=== PATIENT | female | born 1960 | race Caucasian/White ===

== ENCOUNTER 2021-10-12 08:17 | Inpatient (IN) ==
[2021-10-12] MEDS ORDERED: Furosemide 40 MG/4 ML VIAL IVP ONE (08:51)
[2021-10-12 09:25] LABS: Basophils # 0.1 K/mcL (0.0-0.2); Basophils % 1.2 %; Eosinophils # 0.5 K/mcL (0.0-0.6); Eosinophils % 5.2 %; Hematocrit 37.7 % (35.3-44.9); Immature Granulocytes % 4.5 % (0-4); Lymphocytes # 0.8 K/mcL (0.6-4.6); Lymphocytes % 8.9 %; Mean Corpuscular HGB Conc 31.8 g/dL (31.6-35.5); Mean Corpuscular Hemoglobin 29.3 pg (28.0-33.3); Mean Platelet Volume 9.9 fL (9.4-12.4); Monocytes # 0.8 K/mcL (0.0-1.3); Monocytes % 9.2 %; Neutrophils # 6.5 K/mcL (1.6-8.9); Platelet Count 217 K/mcL (140-400); Red Cell Distribution Width 14.3 % (11.5-14.5); White Blood Count 9.1 K/mcL (4.3-11.1)
[2021-10-12 09:28] LABS: VBG HCO3 28 mEq/L (21-27); VBG PCO2 46 mmHg (41-51); VBG PH 7.39 pH Units (7.32-7.42); VBG PO2 97 mmHg (25-50)
[2021-10-12] MEDS ORDERED: Isovue-370 500 ML BOTTLE IVP ONE (09:44)
[2021-10-12 09:47] LABS: Alanine Aminotransferase 87 Units/L (7-52); Albumin 3.3 g/dL (3.5-5.7); Albumin/Globulin Ratio 1.2 (1.1-2.2); Alkaline Phosphatase 181 Units/L (34-104); Aspartate Amino Transferase 52 Units/L (13-39); BUN/Creatinine Ratio 19 (6-26); Bilirubin,Total 0.6 mg/dL (0.3-1.0); Blood Urea Nitrogen 9 mg/dL (6-20); Calcium 8.2 mg/dL (8.6-10.3); Carbon Dioxide 26 mEq/L (23-29); Chloride 101 mEq/L (98-107); Globulin 2.8 g/dL (2.4-3.5); Glucose 148 mg/dL (70-105); Osmolality,Calculated 281 (280-300); Potassium 3.9 mEq/L (3.5-5.1); Sodium 135 mEq/L (136-145); Total Protein 6.1 g/dL (6.4-8.9); Troponin I < 0.03 ng/mL (< 0.04); eGFR For African Americans > 60 (> 60); eGFR For Non-African Americans > 60 (> 60)
[2021-10-12 10:11] LABS: Adenovirus Not Detected (Not Detect); Bordetella Pertussis Not Detected (Not Detect); Coronavirus 229E Not Detected (Not Detect); Coronavirus HKU1 Not Detected (Not Detect); Coronavirus NL63 Not Detected (Not Detect); Coronavirus OC43 Not Detected (Not Detect); Human Metapneumovirus Not Detected (Not Detect); Human Rhinovirus/Enterovirus Not Detected (Not Detect); Influenza A Subtype 2009 H1 Not Detected (Not Detect); Influenza B Not Detected (Not Detect); Parainfluenza Virus 1 Not Detected (Not Detect); Parainfluenza Virus 2 Not Detected (Not Detect); Parainfluenza Virus 3 Not Detected (Not Detect); Parainfluenza Virus 4 Not Detected (Not Detect); Respiratory Syncytial Virus DETECTED (Not Detect); SARS-CoV-2 Not Detected (Not Detect)
[2021-10-12 10:12] LABS: Chlamydophila pneumoniae Not Detected (Not Detect); Mycoplasma pneumoniae Not Detected (Not Detect)
[2021-10-12] MEDS ORDERED: Ipratropium/Albuterol Neb 3 ML IH ONE (10:26)
[2021-10-12 10:41] LABS: Bilirubin,Urine Negative (Negative); Blood,Urine Negative (Negative); Clarity,Urine Clear (Clear); Color,Urine Colorless (Yellow); Glucose,Urine (UA) >=1000 mg/dL (Normal); Ketones,Urine Trace mg/dL (Negative); Leukocyte Esterase,Urine Negative (Negative); Nitrite,Urine Negative (Negative); PH,Urine 6.5 pH Units (5.0-8.0); Protein,Urine Negative (Neg-Trace); RBC,Urine 0-3 per hpf (0-3); Specific Gravity,Urine 1.016 (1.010-1.025); Squamous Epithelial Cell,Urine Few per hpf (None-Few); Urobilinogen,Urine Normal (Normal); WBC,Urine 0-3 per hpf (0-3)
[2021-10-12] MEDS ORDERED: Perflutren Lipid Microsphere 1.3 ML in 0.9 % Sodium Chloride 8.7 ML IVP PRN (11:41)
[2021-10-12] MEDS ORDERED: Naloxone 0.4 MG/ML INJ IVP PRN (11:44)
[2021-10-12] MEDS ORDERED: Melatonin 3 MG TABLET PO PRN (11:44)
[2021-10-12] MEDS ORDERED: Ondansetron 4 MG/2 ML VIAL IVP PRN (11:44)
[2021-10-12] MEDS ORDERED: Acetaminophen 325 MG TABLET PO PRN (11:44)
[2021-10-12] MEDS ORDERED: Azithromycin 500 MG in 0.9 % Sodium Chloride 250 ML IVPB ONE (11:51)
[2021-10-12] MEDS ORDERED: cefTRIAXone 1,000 MG in 0.9 % Sodium Chloride Mini Bag 100 ML IVPB SCH (12:00)
[2021-10-12] MEDS ORDERED: D5% in Water 1,000 ML IVC PRN (12:24)
[2021-10-12] MEDS ORDERED: Dextrose Gel 15 GM/37.5 ML TUBE PO PRN ×2 (12:24)
[2021-10-12] MEDS ORDERED: *HR* Dextrose 50 % in Water (Syg) 50 ML SYRINGE IVP PRN (12:24)
[2021-10-12] MEDS ORDERED: Ipratropium Neb 0.5 MG NEBULIZER IH PRN (15:07)
[2021-10-12] MEDS: Ipratropium/Albuterol Neb 3 ML IH SCH ×2 (15:35→20:23)
[2021-10-12] MEDS ORDERED: cefTRIAXone 1,000 MG in Water for inj. (sterile) 10 ML IVP SCH (16:00)
[2021-10-12] MEDS: MethylPREDNISolone 40 MG/ML VIAL IVP SCH (16:23)
[2021-10-12] MEDS: Nicotine 21 MG PATCH.TD24 TD SCH (16:23)
[2021-10-12] MEDS: Insulin LISPRO 300 UNITS/3 ML VIAL SUBQ SCH ×2 (16:24→21:09)
[2021-10-12] MEDS: QUEtiapine Fumarate 25 MG TABLET PO SCH (21:08)
[2021-10-13 03:21] LABS: Alanine Aminotransferase 74 Units/L (7-52); Albumin 3.5 g/dL (3.5-5.7); Albumin/Globulin Ratio 1.1 (1.1-2.2); Alkaline Phosphatase 172 Units/L (34-104); Aspartate Amino Transferase 23 Units/L (13-39); BUN/Creatinine Ratio 27 (6-26); Bilirubin,Total 0.6 mg/dL (0.3-1.0); Blood Urea Nitrogen 13 mg/dL (6-20); Calcium 8.7 mg/dL (8.6-10.3); Carbon Dioxide 27 mEq/L (23-29); Chloride 100 mEq/L (98-107); Globulin 3.1 g/dL (2.4-3.5); Glucose 158 mg/dL (70-105); Magnesium 2.3 mg/dL (1.6-2.6); Osmolality,Calculated 289 (280-300); Phosphorous 4.1 mg/dL (2.7-4.5); Potassium 4.3 mEq/L (3.5-5.1); Sodium 138 mEq/L (136-145); Total Protein 6.6 g/dL (6.4-8.9); eGFR For African Americans > 60 (> 60); eGFR For Non-African Americans > 60 (> 60)
[2021-10-13] MEDS: Ipratropium/Albuterol Neb 3 ML IH SCH ×4 (03:36→20:24)
[2021-10-13 05:37] LABS: Estimated Average Glucose 183 mg/dl
[2021-10-13] MEDS: Insulin LISPRO 300 UNITS/3 ML VIAL SUBQ SCH ×4 (07:16→21:10)
[2021-10-13] MEDS: Nicotine 21 MG PATCH.TD24 TD SCH (08:16)
[2021-10-13] MEDS: QUEtiapine Fumarate 25 MG TABLET PO SCH ×2 (08:16→21:10)
[2021-10-13] MEDS: BuPROPion XL (24 HR) 150 MG TABLET PO SCH (08:16)
[2021-10-13] MEDS: MethylPREDNISolone 40 MG/ML VIAL IVP SCH (08:17)
[2021-10-13] MEDS ORDERED: Azithromycin 500 MG in 0.9 % Sodium Chloride 250 ML IVPB SCH (12:00)
[2021-10-14] MEDS: Ipratropium/Albuterol Neb 3 ML IH SCH ×4 (04:10→20:06)
[2021-10-14] MEDS: Nicotine 21 MG PATCH.TD24 TD SCH (08:50)
[2021-10-14] MEDS: BuPROPion XL (24 HR) 150 MG TABLET PO SCH (08:50)
[2021-10-14] MEDS: MethylPREDNISolone 40 MG/ML VIAL IVP SCH (08:50)
[2021-10-14] MEDS: Spironolactone 12.5 MG TABLET PO SCH (08:50)
[2021-10-14] MEDS: Insulin LISPRO 300 UNITS/3 ML VIAL SUBQ SCH ×4 (08:51→20:13)
[2021-10-14] MEDS: QUEtiapine Fumarate 25 MG TABLET PO SCH ×2 (08:51→20:08)
[2021-10-14 09:02] LABS: Alanine Aminotransferase 57 Units/L (7-52); Albumin 3.5 g/dL (3.5-5.7); Albumin/Globulin Ratio 1.2 (1.1-2.2); Alkaline Phosphatase 152 Units/L (34-104); Aspartate Amino Transferase 16 Units/L (13-39); BUN/Creatinine Ratio 35 (6-26); Bilirubin,Total 0.5 mg/dL (0.3-1.0); Blood Urea Nitrogen 21 mg/dL (6-20); Calcium 8.6 mg/dL (8.6-10.3); Carbon Dioxide 26 mEq/L (23-29); Chloride 102 mEq/L (98-107); Globulin 2.9 g/dL (2.4-3.5); Glucose 180 mg/dL (70-105); Magnesium 2.1 mg/dL (1.6-2.6); Osmolality,Calculated 292 (280-300); Phosphorous 3.3 mg/dL (2.7-4.5); Potassium 4.1 mEq/L (3.5-5.1); Sodium 137 mEq/L (136-145); Total Protein 6.4 g/dL (6.4-8.9); eGFR For African Americans > 60 (> 60); eGFR For Non-African Americans > 60 (> 60)
[2021-10-15] MEDS: Ipratropium/Albuterol Neb 3 ML IH SCH ×4 (04:18→20:25)
[2021-10-15] MEDS: MethylPREDNISolone 40 MG/ML VIAL IVP SCH (07:40)
[2021-10-15] MEDS: Insulin LISPRO 300 UNITS/3 ML VIAL SUBQ SCH ×4 (07:40→21:13)
[2021-10-15] MEDS: QUEtiapine Fumarate 25 MG TABLET PO SCH ×2 (07:41→21:10)
[2021-10-15] MEDS: Nicotine 21 MG PATCH.TD24 TD SCH (07:41)
[2021-10-15] MEDS: BuPROPion XL (24 HR) 150 MG TABLET PO SCH (07:41)
[2021-10-15] MEDS: Spironolactone 12.5 MG TABLET PO SCH (07:41)
[2021-10-15 08:18] LABS: Alanine Aminotransferase 46 Units/L (7-52); Albumin 3.5 g/dL (3.5-5.7); Albumin/Globulin Ratio 1.3 (1.1-2.2); Alkaline Phosphatase 136 Units/L (34-104); Aspartate Amino Transferase 12 Units/L (13-39); BUN/Creatinine Ratio 29 (6-26); Bilirubin,Total 0.5 mg/dL (0.3-1.0); Blood Urea Nitrogen 17 mg/dL (6-20); Calcium 8.8 mg/dL (8.6-10.3); Carbon Dioxide 27 mEq/L (23-29); Chloride 102 mEq/L (98-107); Globulin 2.7 g/dL (2.4-3.5); Glucose 186 mg/dL (70-105); Osmolality,Calculated 290 (280-300); Potassium 3.7 mEq/L (3.5-5.1); Sodium 137 mEq/L (136-145); Total Protein 6.2 g/dL (6.4-8.9); eGFR For African Americans > 60 (> 60); eGFR For Non-African Americans > 60 (> 60)
[2021-10-15] MEDS ORDERED: Furosemide 20 MG/2 ML VIAL IVP ONE (10:38)
[2021-10-16 01:49] LABS: Alanine Aminotransferase 44 Units/L (7-52); Albumin 3.7 g/dL (3.5-5.7); Albumin/Globulin Ratio 1.3 (1.1-2.2); Alkaline Phosphatase 124 Units/L (34-104); Aspartate Amino Transferase 11 Units/L (13-39); BUN/Creatinine Ratio 25 (6-26); Bilirubin,Total 0.5 mg/dL (0.3-1.0); Blood Urea Nitrogen 17 mg/dL (6-20); Carbon Dioxide 27 mEq/L (23-29); Chloride 98 mEq/L (98-107); Globulin 2.9 g/dL (2.4-3.5); Glucose 229 mg/dL (70-105); Osmolality,Calculated 289 (280-300); Potassium 3.4 mEq/L (3.5-5.1); Sodium 135 mEq/L (136-145); Total Protein 6.6 g/dL (6.4-8.9); eGFR For African Americans > 60 (> 60); eGFR For Non-African Americans > 60 (> 60)
[2021-10-16] MEDS: Ipratropium/Albuterol Neb 3 ML IH SCH ×2 (03:56→09:00)
[2021-10-16] MEDS: Insulin LISPRO 300 UNITS/3 ML VIAL SUBQ SCH ×2 (08:08→12:08)
[2021-10-16] MEDS: Nicotine 21 MG PATCH.TD24 TD SCH (08:08)
[2021-10-16] MEDS: MethylPREDNISolone 40 MG/ML VIAL IVP SCH (08:09)
[2021-10-16] MEDS: BuPROPion XL (24 HR) 150 MG TABLET PO SCH (08:09)
[2021-10-16] MEDS: QUEtiapine Fumarate 25 MG TABLET PO SCH (08:09)
[2021-10-16] MEDS: Spironolactone 12.5 MG TABLET PO SCH (08:09)
[2021-10-16 11:16] VITALS: BP 97/64; PULSE 58; TEMP 97.3; O2SAT 90
== END 2021-10-16 13:15 | disposition home or self-care (01) | DRG 138 ==
LOC: EMEROOARM 08:17 → 2ANU 08:17 → SUATTDRO 11:35 → 2ANU 12:18
PROVIDERS: ADMIT Internal Medicine; ATTEND Internal Medicine